=== PATIENT | female | born 1985 | race African-American/Black ===

== ENCOUNTER 2018-09-08 11:47 | Emergency (ER) | payer MEDICAID ==
[2018-09-08] MEDS ORDERED: Sodium Chloride 0.9% 1,000 ML IV ONE (11:54)
[2018-09-08] MEDS ORDERED: Ondansetron 4 MG/2 ML SDV IVPUSH ONE (11:54)
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
[2018-09-08] MEDS ORDERED: Acetaminophen 500 MG Tab PO ONE (11:55)
[2018-09-08 12:54] LABS: CHLORIDE,CL 105 mmol/L (98-107); SODIUM,NA 138 mmol/L (136-145)
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
== END 2018-09-08 13:30 | disposition home or self-care (01) ==
LOC: MW.ED 11:47
DX: O99.89 Other specified diseases and conditions complicating pregnancy, childbirth and the puerperium (principal); M54.5 Low back pain; R11.0 Nausea; Z3A.10 10 weeks gestation of pregnancy; V59.50XA Passenger in pick-up truck or van injured in collision with unspecified motor vehicles in traffic accident, initial encounter
CPT/HCPCS: 36415; 76801; 80053; 81001; 84702; 85025; 85610; 86900; 86901; 87086; 96361; 96374; 99284; A9270; J2405; J7040